=== PATIENT | female | born 1980 | race Caucasian/White ===

== ENCOUNTER 2018-08-01 21:49 | Emergency (ER) | payer SELFPAY ==
[~2018-08-01] VITALS: Ht 175.3 cm; Wt 78.9 kg
[2018-08-01] MEDS ORDERED: LIDO:MAALOX 1:1 20 ML SINGLE DOSE. SWSW ONE (22:00)
[2018-08-01] MEDS ORDERED: ONDANSETRON PF 4 MG/2 ML VIAL. IV ONE (22:00)
[2018-08-01] MEDS ORDERED: FAMOTIDINE 20 MG/2 ML VIAL IVP ONE (22:00)
[2018-08-01 22:33] VITALS: BP 109/79
--- NOTE | 2018-08-01 22:47 | PHYS DOC ---
Past Medical History Past Medical History: No Pertinent History Past Surgical History: Cholecystectomy, Tonsillectomy Alcohol Use: None Drug Use: None Adult General Chief Complaint Chief Complaint: ALLERGIC REACTION HPI HPI Patient is a 38 year old female with history of hydrocodone intolerance presents with acute upper abdominal GI upset, nausea, and burning after accidentally taking hydrocodone which was mixed in with regular medication just prior to arrival. Denies chest pain, chest tightness, shortness of breath, rash and itching. No other acute symptoms or complaints. [] Review of Systems Review of Systems Review symptoms as per history of present illness. All other review symptoms are negative. All other systems were reviewed and found to be within normal limits, except as documented in this note. Current Medications Current Medications Current Medications Medications (Trade) Dose Ordered Sig/[place] Start Time Stop Time Status Last Admin Dose Admin Famotidine (Pepcid Vial) 20 mg 1X ONCE 08/01/18 22:00 08/01/18 22:01 DC 08/01/18 22:07 20 MG Multi-Ingredient Mouthwash/Gargle (Gi Cocktail) 20 ml 1X ONCE 08/01/18 22:00 08/01/18 22:01 DC 08/01/18 22:07 20 ML Ondansetron HCl (Zofran) 4 mg 1X ONCE 08/01/18 22:00 08/01/18 22:01 DC 08/01/18 22:07 4 MG Allergies Allergies Allergies Coded Allergies Type Severity Reaction Last Updated Verified hydrocodone Allergy Intermediate CHEST TIGHTNESS 08/01/18 Yes Penicillins Allergy Unknown 08/01/18 Yes Physical Exam Physical Exam Constitutional: Well developed, well nourished, anxious, moderate discomfort secondary pain. [] HENT: Normocephalic, atraumatic, bilateral external ears normal, oropharynx moist, no oral exudates, nose normal. [] Eyes: PERRLA, EOMI, conjunctiva normal, no discharge. [] Neck: Normal range of motion, no tenderness, supple, no stridor. [] Cardiovascular:Heart rate regular rhythm, no murmur [] Lungs & Thorax: Bilateral breath sounds clear to auscultation [] Abdomen: Bowel sounds normal, soft, epigastric discomfort is[] Skin: Warm, dry, no erythema. [] Back: No tenderness, no CVA tenderness. [] Extremities: No tenderness, no cyanosis,no edema. [] Neurologic: Alert and oriented X 3, normal motor function, normal sensory function, no focal deficits noted. [] Current Patient Data Vital Signs Vital Signs Date Time Temp Pulse Resp B/P (MAP) Pulse Ox O2 Delivery O2 Flow Rate FiO2 08/01/18 22:11 62 18 116/83 (94) 98 Room Air 08/01/18 21:49 97.9 97.9 EKG EKG [] Radiology/Procedures Radiology/Procedures [] Course & Med Decision Making Course & Med Decision Making Pertinent Labs and Imaging studies reviewed. (See chart for details) [Patient with GI intolerance to hydrocodone. Symptoms significantly improved with Pepcid, Zofran and GI cocktail. Patient does not exhibit symptoms. Recommend supportive care, watchful waiting, close and PCP follow-up. Return precautions reviewed.] Dragon Disclaimer Dragon Disclaimer This electronic medical record was generated, in whole or in part, using a voice recognition dictation system. Departure Departure Impression: Primary Impression: Acute gastritis Additional Impression: Adverse drug reaction Disposition: 01 HOME, SELF-CARE Condition: GOOD Patient Instructions: Drug Reaction, GI Intolerance Additional Instructions: Please take Pepcid 20 mg twice daily, Maalox every 4 hours as needed if symptoms persist. Follow-up with your PCP as needed. Return to the ED if new or worsening symptoms. Problem Qualifiers DONOVAN BEAN DO Aug 01, 2018 22:47
--- NOTE | 2018-08-02 13:37 | EKG ---
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
== END 2018-08-01 23:00 | disposition home or self-care (01) ==
LOC: ER 21:49
DX: K29.00 Acute gastritis without bleeding (principal); T40.2X5A Adverse effect of other opioids, initial encounter; Z90.49 Acquired absence of other specified parts of digestive tract; Z90.89 Acquired absence of other organs; Z88.0 Allergy status to penicillin; Z88.5 Allergy status to narcotic agent; Y92.89 Other specified places as the place of occurrence of the external cause
CPT/HCPCS: 93005; 96374; 96375; 99284; J2405; S0028